=== PATIENT | female | born 1975 | race Caucasian/White ===

== ENCOUNTER 2018-01-10 08:16 | Day surgery (SDC) | payer BC, OTHER ==
[2018-01-10] MEDS ORDERED: LR 1,000 ML IV ONE (08:41)
[2018-01-10] MEDS ORDERED: NALOXONE HCL 0.4 MG/ML INJ IVP PRN (09:31)
[2018-01-10] MEDS ORDERED: DEXAMETHASONE 4 MG/ML VIAL IVP PRN (09:31)
[2018-01-10] MEDS ORDERED: LR 500 ML IV PRN (09:31)
[2018-01-10] MEDS ORDERED: fentaNYL 100 MCG/2 ML INJ IVP PRN (09:31)
[2018-01-10] MEDS ORDERED: MEPERIDINE 25 MG/0.5 ML AMP IVP PRN (09:31)
[2018-01-10] MEDS ORDERED: ONDANSETRON 4 MG/2 ML VIAL IVP PRN (09:31)
[2018-01-10] MEDS ORDERED: oxyCODONE IR 5 MG TAB PO PRN (09:31)
--- NOTE | 2018-01-10 09:31 | PDANEPAE ---
ANE History of Present Illness abdominal pain, here for egd ANE Past Medical History - Cardiovascular History Hx Hypertension: No Hx Arrhythmias: No Hx Chest Pain: No Hx Coronary Artery / Peripheral Vascular Disease: No Hx CHF / Valvular Disease: No Hx Palpitations: No Cardiovascular History Comment: takes diuretic for water retention as needed - Pulmonary History Hx COPD: No Hx Asthma/Reactive Airway Disease: No Hx Recent Upper Respiratory Infection: No Hx Oxygen in Use at Home: No Hx Sleep Apnea: No Sleep Apnea Screening Result - Last Documented: Negative - Neurologic History Hx Cerebrovascular Accident: No Hx Seizures: No Hx Dementia: No Neurologic History Comment: herniated disc in low back - Endocrine History Hx Diabetes: No - Renal History Hx Renal Disorders: No - Liver History Hx Hepatic Disorders: No - Neurological & Psychiatric Hx Hx Neurological and Psychiatric Disorders: Yes Neurological / Psychiatric History Comment: depression - Cancer History Hx Cancer: No - Congenital Disorder History Hx Congenital Disorders: No - GI History Hx Gastrointestinal Disorders: Yes Gastrointestinal History Comment: hx abdominal pain. states vomits bile quite often - Other Health History Other Health History: wears glasses - Chronic Pain History Chronic Pain: No - Surgical History Prior Surgeries: hernia repair. laparoscopic surgery for ovarian cysts. ruptured tubal pregancy ANE Review of Systems Review of Systems: - Exercise capacity METS (RN): 4 METS ANE Patient History - Allergies Allergies/Adverse Reactions: No Known Allergies Allergy (Verified 01/06/18 10:30) - Home Medications Home Medications: Dicyclomine PRN 01/06/18 [Last Taken 01/06/18] Escitalopram Oxalate 01/06/18 [Last Taken 01/09/18] Triamterene/Hydrochlorothiazid 01/06/18 [Last Taken 01/07/18] traMADol PRN 01/06/18 [Last Taken 01/09/18] Aleve 220 MG (*) PRN 01/10/18 [Last Taken 01/09/18] - NPO status NPO Since - Liquids (Date): 01/10/18 NPO Since - Liquids (Time): 06:15 NPO Since - Solids (Date): 01/09/18 NPO Since - Solids (Time): 21:00 - Smoking Hx Smoking Status: Former smoker - Family Anes Hx Family Hx Anesthesia Complications: none ANE Labs/Vital Signs - Labs Result Diagrams: 01/10/18 09:00 - Vital Signs Height: 162.56 cm Weight: 122.016 kg ANE Physical Exam - Airway Neck exam: FROM Mallampati Score: Class 1 Mouth exam: normal dental/mouth exam - Pulmonary Pulmonary: no respiratory distress - Cardiovascular Cardiovascular: regular rate and rhythym - ASA Status ASA Status: II ANE Anesthesia Plan Anesthesia Plan: GA with mask
[2018-01-10] MEDS ORDERED: LIDOCAINE 2% 100 MG/5 ML SYR ONE (09:45)
[2018-01-10] MEDS ORDERED: fentaNYL 100 MCG/2 ML INJ ONE (09:45)
[2018-01-10] MEDS ORDERED: PROPOFOL/EMULSION 500 MG/50 ML BOTTLE IV ONE (09:45)
--- NOTE | 2018-01-10 09:48 | PDGENHP ---
History & Physical Chief Complaint: RUQ pain History of Present Illness: 3 years of RUQ pain. No N/V or GERD. No weight loss. No melena, hematochezia or diarrhea. Pertinent Past, Social, Family History: PMH: Depression. Herniated disc Lumbar. SH: No tobacco. No ETOH Relevant Physical Exam: NAD. CTA B/L. RRR without m/r/g. GI Soft. NABS. NT/ND Cardiorespiratory Assessment: ASA II. EGD with MAC
--- NOTE | 2018-01-10 10:00 | GIREPORT ---
[facility] - Endoscopy Department Patient Name: Krissy Abbasi Procedure Date: 01/10/2018 9:44 AM Patient Type: Outpatient Attending MD/ ER Physician: Jeremiah Lux MD Procedure: Upper GI endoscopy Indications: Abdominal pain in the right upper quadrant Providers: Jeremiah Lux MD Medicines: Propofol per Anesthesia Complications: No immediate complications. Description of Procedure: After obtaining informed consent, the endoscope was passed under direct vision. Throughout the procedure, the patient's blood pressure, pulse, and oxygen saturations were monitored continuously. The Endoscope was intro duced through the mouth, and advanced to the second part of duodenum. The [facility] er GI endoscopy was accomplished without difficulty. The patient tolerated th e procedure well. Findings: The esophagus was normal. Striped mildly erythematous mucosa without bleeding was found in the ga stric body and in the gastric antrum. Biopsies were taken with a cold forceps for histology. The duodenal bulb, first portion of the duodenum and second portion of the duodenum were normal. Biopsies for histology were taken with a cold for ceps for evaluation of celiac disease. Estimated Blood Loss: Estimated blood loss: none. Post Op Diagnosis: - Normal esophagus. - Erythematous mucosa in the gastric body and antrum. Biopsied to exclu de H.pylori. - Normal duodenal bulb, first portion of the duodenum and second portio n of the duodenum. Biopsied. - No endoscopic cause for abdominal pain found. Recommendation: - Await pathology results. - Continue present medications. - Treat H.pylori if seen on the gastric histology. - Return to referring physician as previously scheduled. - Thank you for allowing me to be involved in the care of your patient. Attending Participation: I personally performed the entire procedure without the assistance of a fellow, resident or surg ical medical clerical assistant. Jeremiah Lux MD Jeremiah Lux MD 01/10/2018 9:59:50 AM This report has been signed electronicallyDavid MD Jose J Number of Addenda: 0 Note Initiated On: 01/10/2018 9:44 AM [email or web address]
[2018-01-10 10:47] VITALS: BP 123/97
--- NOTE | 2018-01-10 15:19 | POSTANESTH ---
Post Anesthetic Evaluation Cardiovascular Status: Normal, Stable Respiratory Status: Normal, Stable Level of Consciousness/Mental Status: Can Participate in Eval Pain Control: Adequate, Prn Tx Ordered Nausea/Vomiting Control: Adequate, Prn Tx Ordered Complications Possibly Related to Anesthesia: None Noted (pt see prior to dc. pace of cases too quick to allow time for documentation at time of exam. doing well and without complaints)
== END 2018-01-10 10:48 | disposition home or self-care (01) ==
LOC: FSGY 08:16
PROVIDERS: ATTEND Internal Medicine Gastroenterology
DX: R10.11 Right upper quadrant pain (principal); F32.9 Major depressive disorder, single episode, unspecified; Z87.891 Personal history of nicotine dependence
CPT/HCPCS: J2001; J2704; J3010